=== PATIENT | female | born 1975 | race Caucasian/White ===

== ENCOUNTER 2023-09-18 16:20 | Emergency (ER) | payer BC, SELFPAY ==
[2023-09-18 17:00] VITALS: BP 132/77; PULSE 100; RESP 18; TEMP 37.6; O2SAT 95; BMI 30.9
[2023-09-18 17:15] LABS: UTC Strep Screen (Rapid) Negative (Negative)
--- NOTE | 2023-09-18 17:26 | EXP.UTC ---
Discharge Plan Disposition Patient Disposition: Home, Self-Care Condition: Good Prescriptions Prescriptions: New benzonatate 100 mg capsule 100 mg PO TID PRN (Reason: cough) Qty: 30 0RF methylprednisolone [Medrol (Moi)] 4 mg tablets,dose pack See Rx Instructions .Route .COMPLEX 6 Days Qty: 21 0RF Rx Instructions: taper pack; azithromycin [Zithromax Z-Moi] 250 mg tablet See Rx Instructions .ROUTE .COMPLEX 5 Days Qty: 6 0RF Rx Instructions: For 250 mg dose pack: take 500 mg today (day 1), then 250 mg for 4 days (days 2-5) Referrals Follow up/Referrals: Gonzalo Patterson MD [Primary Care Provider] - See instructions Activity Restrictions/Add. Instructions Additional Instructions/Restrictions: *Monitor Temp, Over the counter Motrin or Tylenol as directed/as needed Tylenol every 4 hours and Motrin every 6 hours (as long as your family doctor has told you that you can take it) for fever or pain. and straight to ER if unable to lower temp less than 101.0 after medication given *Warm salt water gargles may help to soothe the throat *Throat Lozenges? *Warm fluids like tea with honey may help to soothe the throat? *Sleep elevated *Humidifier/Vaporizer Take medication as prescribed Your throat swab was sent for culture. Those results are typically sent to your primary care. Be sure to follow up in 2-3 days with your family doctor/primary care physician if no improvement so they can review those result and treat if necessary. If you don?t have a primary care doctor, I recommend you get one but in the mean time, you will have to return to a walk in clinic Follow up IMMEDIATELY for new or worsening symptoms or no Noticeable improvement over the next 48-72 hours. 911 for difficulty breathing or swallowing Clinical Impressions Clinical Impression: Sinusitis Qualifiers: Sinusitis location: unspecified location Chronicity: unspecified Qualified Code(s): J32.9 - Chronic sinusitis, unspecified Instructions Patient Instructions: DI for Sinusitis, Sinusitis Discharge ED Provider: Sharon Sykes [facility] General Stated complaint: sore throat, cough Mode of Arrival: Ambulatory Source of Information: Patient Limitations: No Limitations Time Seen by Provider: 09/18/23 17:26 Description of Symptoms (Recalled from Triage Doc. by RN): sore throat, cough, left ear pain, and congestion HEENT Symptoms (Recalled from RN notes): Yes Resp Symptoms (Recalled from RN notes): No Skin Symptoms (Recalled from RN notes): No MS Symptoms (Recalled from RN notes): No Functional Status (Recalled from RN notes): n/a History of Present Illness Provider Complaint: Patient states that for over a week she has been having sinus congestion and pressure, sore throat, cough, pain and pressure in her ears and headache States that she has been trying to self medicate but nothing OTC has helped so today she came in to get checked Related Data Previous Rx's Medication Instructions Recorded azithromycin 250 mg tablet See Rx Instructions PO .COMPLEX 5 09/18/23 (Zithromax Z-Moi) days #6 tabs benzonatate 100 mg capsule 100 mg PO TID PRN cough #30 caps 09/18/23 methylprednisolone 4 mg tablets in See Rx Instructions .Route 09/18/23 a dose pack (Medrol (Moi)) .COMPLEX 6 days #21 tabs Allergies Allergy/AdvReac Type Severity Reaction Status Date / Time No Known Allergies Allergy Verified 09/18/23 17:10 Worker's Comp Is this a Worker's Comp case?: No [facility] Disclaimer: The information contained in this section may have been updated after the patient was seen, as this information can be updated by other users. Social History Smoking Status: Unknown if ever smoked alcohol intake: never current occupational status: employed Travel in the last 8 weeks: None ROS Obtained: Yes All systems reviewed & no additional complaints except as documented and Yes Systems reviewed as kassandra
[2023-09-18 17:46] VITALS: BP 132/77; PULSE 100; RESP 18; TEMP 37.6; O2SAT 96
== END 2023-09-18 17:46 | disposition home or self-care (01) ==
PROVIDERS: Emergency Provider Nurse Practitioner; PCP Family Medicine
DX: J01.90 Acute sinusitis, unspecified (principal); R07.0 Pain in throat; R05.9 Cough, unspecified; H92.03 Otalgia, bilateral; R51.9 Headache, unspecified; R09.81 Nasal congestion
CPT/HCPCS: 87880; 99204; 99212; G0463

== ENCOUNTER 2024-01-09 22:05 | Emergency (ER) | payer BC, SELFPAY ==
[2024-01-09 22:05] VITALS: BP 169/87; PULSE 78; RESP 18; TEMP 36.7; O2SAT 94; BMI 28.8
--- NOTE | 2024-01-09 22:09 | PC.NURSE ---
initial glucose 87
--- NOTE | 2024-01-09 22:17 | CT_ITS ---
PROCEDURE INFORMATION: Exam: CT Head Without Contrast Exam date and time: 01/09/2024 10:37 PM Age: 48 years old Clinical indication: Pain; Headache; Additional info: History of increased icp, ADAMS, nausea TECHNIQUE: Imaging protocol: Computed tomography of the head without contrast. Radiation optimization: All CT scans at this facility use at least one of these dose optimization techniques: automated exposure control; mA and/or kV adjustment per patient size (includes targeted exams where dose is matched to clinical indication); or iterative reconstruction. COMPARISON: No relevant prior studies available. FINDINGS: Brain: Normal. No hemorrhage. Unremarkable white matter. No mass effect. Cerebral ventricles: No ventriculomegaly. Pituitary gland and sella: Negative Paranasal sinuses: Visualized sinuses are unremarkable. No fluid levels. Mastoid air cells: Visualized mastoid air cells are well aerated. Orbital cavities: Negative. Parotid and submandibular glands: Negative Bones/joints: Unremarkable. No acute fracture. Soft tissues: Unremarkable. Vasculature: Negative. IMPRESSION: No acute intracranial abnormality.
[2024-01-09 22:24] LABS: Basophils # 0.2 K/mm3 (0-0.2); Basophils % 1.7 % (0.1-2.0); Eosinophils # 0.2 K/mm3 (0.0-0.4); Eosinophils % 1.8 % (0.1-12.0); Lymphocytes # 3.4 K/mm3 (0.7-4.5); Lymphocytes % 30.4 % (10-50); Mean Corpuscular HGB Conc 32.7 g/dL (31.8-35.4); Mean Corpuscular Hemoglobin 33.3 pg (27.0-31.2); Mean Corpuscular Volume 101.9 fl (81-99); Monocytes # 0.4 K/mm3 (0.1-1.0); Monocytes % 3.8 % (1.7-9.3); Neutrophils # 6.9 K/mm3 (1.8-7.8); Neutrophils % 62.4 % (37.0-80.0); Platelet Count 246 K/mm3 (142-424); Red Blood Count 4.81 M/mm3 (4.20-5.40); White Blood Count 11.1 K/mm3 (4.8-10.8)
[2024-01-09] MEDS: 0.9 % SODIUM CHLORIDE 1000ML 1,000 ML 999 ML IV (22:25)
[2024-01-09 22:26] LABS: Chloride 106 mmol/L (98-107); Potassium 3.2 mmoL/L (3.5-5.1); Sodium 139 mmol/L (136-145)
[2024-01-09] MEDS: PROCHLORPERAZINE 10MG/2ML VIAL 10 MG IV (22:26)
[2024-01-09] MEDS: diphenhydrAMINE 50MG/ML VIAL 25 MG IV (22:26)
[2024-01-09] MEDS: KETOROLAC 30MG/ML VIAL 15 MG IV (22:27)
[2024-01-09 22:28] LABS: Alanine Aminotransferase 30 U/L (12-78); Alkaline Phosphatase 104 U/L (38-126); Aspartate Amino Transferase 31 U/L (14-36); Bilirubin,Total 0.5 mg/dl (0.2-1.3); Blood Urea Nitrogen 8 mg/dl (7-17); Creatinine Clearance Estimated 90 mL/min (50-200); Estimated Glomerular Filt Rate 67 ml/min (>60); GFR (African American) 81 ML/MIN (>60)
[2024-01-09] MEDS: DEXAMETHASONE 4MG/ML 1ML VIAL 10 MG IV (22:28)
[2024-01-09 22:29] LABS: Albumin Level 4.6 g/dl (3.5-5.0); Albumin/Globulin Ratio 1.4 (1.1-1.8); Anion Gap 11.2 mEq/L (5-15); Calcium 9.8 mg/dl (8.4-10.2); Carbon Dioxide 25 mmol/L (22.0-30.0); Globulin 3.4 g/dL (1.3-3.2); Glucose 91 mg/dl (74-100)
[2024-01-09 22:30] VITALS: BP 137/88; PULSE 80; O2SAT 99
--- NOTE | 2024-01-09 22:42 | HMH.EDGENADL ---
Discharge Plan Disposition Patient Disposition: Xfer Short-Term Hosp Chief Complaint: Headache Prescriptions Prescriptions: No Action benzonatate 100 mg capsule 100 mg PO TID PRN (Reason: cough) Qty: 30 0RF methylprednisolone [Medrol (Moi)] 4 mg tablets,dose pack See Rx Instructions .Route .COMPLEX 6 Days Qty: 21 0RF Rx Instructions: taper pack; azithromycin [Zithromax Z-Moi] 250 mg tablet See Rx Instructions .ROUTE .COMPLEX 5 Days Qty: 6 0RF Rx Instructions: For 250 mg dose pack: take 500 mg today (day 1), then 250 mg for 4 days (days 2-5) Referrals Follow up/Referrals: Provider,Referral, MD [Primary Care Provider] - See instructions Clinical Impressions Clinical Impression: Intracranial hypertension, Headache, Blurred vision Stand Alone Forms Stand Alone Forms: Transfer Record - ED Discharge ED Provider: Glynn Mccallum General Adult HPI General Chief complaint: Headache Stated complaint: stroke symptoms Time Seen by Provider: 01/09/24 22:10 Mode of Arrival: Ambulatory Source of Information: Patient and [employer] Limitations: No Limitations Description of Symptoms (Recalled from ER Triage Doc. by RN): Patient arrived accompanied by co-workers after having 10/10 headache at work and difficulty with word finding. Patient reports that she's been seen by a neurologist recently for swelling in her optic nerves and that she began having increased generalized headache and nausea tonight. Patient reports that she has not felt right since at least last week. Patient was seen [facility] and diagnosed with a possible viral syndrome. History of Present Illness HPI narrative: 48-year-old female with history of known intracranial hypertension presenting with headaches, vomiting, hallucinations. Started getting worse over the past couple days. Today, patient states that her vision has been blurrier than usual, she is having hallucinations including objects and animals, severe, 10 out of 10 headache. It does not radiate. Bifrontal. No neurologic deficits other than blurry vision. Has not noticed anything that makes the pain better, has not tried any interventions. Was recently seen by neurologist at [facility], lumbar puncture 2 weeks ago with pressure 47 mmHg. Was given neurosurgery for follow-up referral, but has not heard anything back about the appointment. Please note that above description of symptoms, in this electronic medical record under categorization of recalled from ER triage doctor by RN are reflective of an initial nursing assessment, however, is not reflective of my full history and physical exam that was personally taken and clarified. Consequentially, this preceding description of symptoms, which may include the patient's categorized chief complaint in the EMR, do not reflect my personal clinical impression, and the ultimate description of history of present illness and patient stated complaints should be deferred to this section of the note. Unless stated otherwise or congruent with this section of the note, additional signs, symptoms, or incongruence should be interpreted as inaccurate with my clinical impression. Related Data Previous Rx's Medication Instructions Recorded azithromycin 250 mg tablet See Rx Instructions PO .COMPLEX 5 09/18/23 (Zithromax Z-Moi) days #6 tabs benzonatate 100 mg capsule 100 mg PO TID PRN cough #30 caps 09/18/23 methylprednisolone 4 mg tablets in See Rx Instructions .Route 09/18/23 a dose pack (Medrol (Moi)) .COMPLEX 6 days #21 tabs Allergies Allergy/AdvReac Type Severity Reaction Status Date / Time No Known Allergies Allergy Verified 09/18/23 17:10 [facility] Disclaimer: The information contained in this section may have been updated after the patient was seen, as this information can be updated by other users. Social History (Updated 09/18/23 @ 17:32 by Sharon Sykes APRN) Smoking Status: Current every day smoker alcohol intake: never current occupational status: employed Travel in the last 8 weeks: None ROS Obtained: Yes All systems reviewed & no additional complaints except as documented Physical Exam General General appearance: alert and in no apparent distress Head Head exam: atraumatic and normocephalic Eye Eye exam: Present normal appearance, PERRL and EOMI ENT ENT exam: Present mucous membranes moist Neck Neck exam: Present normal inspection, full ROM and trachea midline Respiratory Respiratory exam: Present normal lung sounds bilaterally; Absent respiratory distress, wheezes, stridor, accessory muscle use or prolonged expiratory phase Cardiovascular Cardiovascular exam: Present regular rate and normal rhythm Abdominal Exam Abdominal exam: Present soft; Absent distention, tenderness, guarding, rebound or rigidity Extremities Exam Extremities exam: Absent edema Neurological Exam Neurological exam: Present alert, oriented X3, CN II-XII intact and normal gait; Absent motor sensory deficit Skin Skin exam: Present warm and dry; Absent diaphoresis or erythema Medical Decision Making Medical Records Medical records reviewed: Yes I reviewed the patient's medical records. Sukhwinder Inquiry Pt receiving controlled substance: No Sukhwinder was queried for this patient: No Vital Signs: 01/09/24 22:05 Temperature 98.1 F Temperature Source Oral Pulse Rate [Left Radial] 78 Respiratory Rate 18 Blood Pressure [Right Arm] 169/87 H Blood Pressure Mean [Right Arm] 114 Blood Pressure Source [Right Arm] Automatic Cuff Blood Pressure Position [Right Arm] Sitting 02 Sat by Pulse Oximetry 94 L Oxygen Delivery Method Room Air Lab Data Lab Results 01/09/24 22:07: WBC 11.1 H, RBC 4.81, Hgb 16.0, Hct 49.0 H, MCV 101.9 H, MCH 33.3 H, MCHC 32.7, RDW 13.0, Plt Count 246, MPV 8.0, Neut % (Auto) 62.4, Lymph % (Auto) 30.4, Wilkinson % (Auto) 3.8, Eos % (Auto) 1.8, Baso % (Auto) 1.7, Neut # (Auto) 6.9, Lymph # (Auto) 3.4, Wilkinson # (Auto) 0.4, Eos # (Auto) 0.2, Baso # (Auto) 0.2, Sodium 139, Potassium 3.2 L, Chloride 106, Carbon Dioxide 25, Anion Gap 11.2, BUN 8, Creatinine 0.90, Estimated Creat Clear 90, Estimated GFR 67, Est GFR ( Amer) 81, Glucose 91, Calcium 9.8, Total Bilirubin 0.5, AST 31, ALT 30, Alkaline Phosphatase 104, Total Protein 8.0, Albumin 4.6, Globulin 3.4 H, Albumin/Globulin Ratio 1.4 01/09/24 22:07 01/09/24 22:07 Orders (Tests/Meds): ED MEDICATIONS Discontinued Medications Generic Name Dose Route Start Last Admin Trade Name Freq PRN Reason Stop Dose Admin Dexamethasone Sodium Phosphate 10 mg 01/09/24 22:17 01/09/24 22:28 Dexamethasone 4mg/Ml 1ml Vial IV 01/09/24 22:18 10 mg ONCE ONE Administration Diphenhydramine HCl 25 mg 01/09/24 22:17 01/09/24 22:26 Diphenhydramine 50mg/Ml Vial IV 01/09/24 22:18 25 mg ONCE ONE Administration Sodium Chloride 500 mls @ 999 mls/hr 01/09/24 22:19 01/09/24 22:20 Sod Chlor 0.9% 1000ml Bag IV 01/09/24 22:49 Not Given .Q31M ONE Sodium Chloride 1,000 mls @ 999 mls/hr 01/09/24 22:20 01/09/24 22:25 Sod Chlor 0.9% 1000ml Bag IV 01/09/24 23:20 999 mls/hr .Q1H1M ONE Administration Ketorolac Tromethamine 15 mg 01/09/24 22:17 01/09/24 22:27 Ketorolac 30mg/Ml Vial IV 01/09/24 22:18 15 mg ONCE ONE Administration Prochlorperazine Edisylate 10 mg 01/09/24 22:17 01/09/24 22:26 Prochlorperazine 10mg/2ml Vial IV 01/09/24 22:18 10 mg ONCE ONE Administration ORDERS Category Date Time Status CT head/brain wo con Stat Cat Scan 01/09/24 22:17 Completed CBC w/Auto Diff [Complete Blood Count Auto Diff] Stat Lab 01/09/24 22:07 Completed CMP [Comprehensive Metabolic Panel] Stat Lab 01/09/24 22:07 Completed Medical Decision Narrative: 48-year-old female with history of known intracranial hypertension presenting with headaches, vomiting, hallucinations. Started getting worse over the past couple days. Today, patient states that her vision has been blurrier than usual, she is having hallucinations including objects and animals, severe, 10 out of 10 headache. It does not radiate. Bifrontal. No neurologic deficits other than blurry vision. Has not noticed anything that makes the pain better, has not tried any interventions. Was recently seen by neurologist at [place], lumbar puncture 2 weeks ago with pressure 47 mmHg. Was given neurosurgery for follow-up referral, but has not heard anything back about the appointment.History was obtained via conversation with patient. On arrival, patient hemodynamically stable, alert, oriented x4, appropriate, GCS 15, moving all extremities spontaneously, pupils equal and reactive to light. Full physical exam performed and significant for noting some blurry vision, but neurovascular intact with NIHSS 0. Cardiac exam within normal limits, overall well-appearing, but tearful. Differential includes increased intracranial hypertension, obstructive versus nonobstructive hydrocephalus, IIH, among others. Patient was given headache cocktail with Compazine, Toradol, normal saline, Benadryl, Decadron for symptomatic management and correction of underlying abnormalities. Workup independently interpreted and significant for nonactionable CBC or chemistry. CT head without acute intracranial abnormality. See radiology read for full review of final results. On reevaluation, patient's headache feeling little bit better. Still severe, still having blurry vision. Because patient has history of known intracranial hypertension with elevated pressure, supposed to be following with neurosurgery, has not had the opportunity to do so, [facility] was contacted and case was discussed at length. Ultimately, patient to be t transferred for further evaluation and management. Results were relayed to patient, she is grateful. Because patient high risk for clinical decompensation if discharged, deemed appropriate for transfer and inpatient admission. Results were relayed to patient who voiced understanding and patient was agreeable to transfer, inpatient admission, and management. Patient was graciously accepted and transferred to for further definitive management, under Dr. Lopez. Critical Care Critical Care Time Critical Care Time: No
--- NOTE | 2024-01-09 22:51 | PC.NURSE ---
contacted [facility] for possible transfer
[2024-01-09 23:00] VITALS: BP 153/94; PULSE 73; O2SAT 98
--- NOTE | 2024-01-09 23:16 | PC.NURSE ---
MD Mccallum on phone with at this time
--- NOTE | 2024-01-09 23:23 | PC.NURSE ---
Dr. Lopez accepted, pt going to ED
[2024-01-09 23:38] VITALS: BP 153/94; PULSE 74; RESP 18; TEMP 36.6; O2SAT 96
--- NOTE | 2024-01-09 23:38 | PC.NURSE ---
Nurse to nurse report given to Eliza BERTRAND at ER.
== END 2024-01-09 23:44 | disposition short-term general hospital (02) ==
PROVIDERS: Emergency Provider Emergency Medicine
DX: G44.89 Other headache syndrome (principal); G93.2 Benign intracranial hypertension; H53.8 Other visual disturbances; E87.6 Hypokalemia; R11.2 Nausea with vomiting, unspecified; R44.1 Visual hallucinations; F17.210 Nicotine dependence, cigarettes, uncomplicated
CPT/HCPCS: 70450; 80053; 85025; 96361; 96374; 96375; 99285

== ENCOUNTER 2024-03-26 04:11 | Emergency (ER) | payer BC, SELFPAY ==
[2024-03-26 04:12] VITALS: BP 138/61; PULSE 79; RESP 18; TEMP 36.5; O2SAT 98; BMI 29.0
--- NOTE | 2024-03-26 04:23 | CT_ITS ---
PROCEDURE INFORMATION: Exam: CTA Abdomen and Pelvis With Contrast Exam date and time: 03/26/2024 4:55 AM Age: 48 years old Clinical indication: Other: Delayed pain/bleeding at R fem cath site TECHNIQUE: Imaging protocol: Computed tomographic angiography of the abdomen and pelvis with contrast. Exam focused on the arteries. 3D rendering (Not supervised by radiologist): MIP and/or 3D reconstructed images were created by the technologist. Radiation optimization: All CT scans at this facility use at least one of these dose optimization techniques: automated exposure control; mA and/or kV adjustment per patient size (includes targeted exams where dose is matched to clinical indication); or iterative reconstruction. Contrast material: ISOVUE 370; Contrast volume: 100 ml; Contrast route: INTRAVENOUS (IV); COMPARISON: No relevant prior studies available. FINDINGS: Aorta: No aortic aneurysm. No aortic dissection. Celiac trunk and mesenteric arteries: No occlusion or significant stenosis. Renal arteries: No occlusion or significant stenosis. Right iliac arteries: No occlusion or significant stenosis. Left iliac arteries: No occlusion or significant stenosis. Liver: No mass. Gallbladder and biliary ducts: Cholecystectomy. Pancreas: Unremarkable. No mass. No ductal dilation. Spleen: Unremarkable. No splenomegaly. Adrenal glands: Unremarkable. No mass. Kidneys and ureters: Unremarkable. No solid mass. No hydronephrosis. Stomach and bowel: Unremarkable. No obstruction. No mucosal thickening. Appendix: No evidence of appendicitis. Intraperitoneal space: Unremarkable. No free air. No significant fluid collection. Lymph nodes: Unremarkable. No enlarged lymph nodes. Urinary bladder: Unremarkable. No mass. Reproductive: Unremarkable as visualized. Bones/joints: No acute fracture. Soft tissues: There is subcutaneous hematoma seen in the right inguinal region. No active hemorrhage is identified however. No pseudoaneurysm is identified. IMPRESSION: Small subcutaneous hematoma seen in the right inguinal region. No active hemorrhage is identified however. No pseudoaneurysm is identified.
--- NOTE | 2024-03-26 04:27 | ED_ITS ---
Discharge Plan Disposition Patient Disposition: Home, Self-Care Prescriptions Prescriptions: No Action benzonatate 100 mg capsule 100 mg PO TID PRN (Reason: cough) Qty: 30 0RF methylprednisolone [Medrol (Moi)] 4 mg tablets,dose pack See Rx Instructions .Route .COMPLEX 6 Days Qty: 21 0RF Rx Instructions: taper pack; azithromycin [Zithromax Z-Moi] 250 mg tablet See Rx Instructions .ROUTE .COMPLEX 5 Days Qty: 6 0RF Rx Instructions: For 250 mg dose pack: take 500 mg today (day 1), then 250 mg for 4 days (days 2-5) Referrals Follow up/Referrals: Provider,Referral, MD [Primary Care Provider] - See instructions Activity Restrictions/Add. Instructions Additional Instructions/Restrictions: Please follow-up with your primary care provider. Please return to the emergency department if you develop any new or worsening symptoms or become concerned for your health. Clinical Impressions Clinical Impression: Post-operative pain Discharge ED Provider: Adrian Bonilla Adult HPI General Chief complaint: PAIN Stated complaint: bleeding in right femoral incision site Time Seen by Provider: 03/26/24 04:15 Mode of Arrival: EMS Source of Information: Patient Limitations: No Limitations Description of Symptoms (Recalled from ER Triage Doc. by RN): Pt presented to the ED for right groin pain. Pt had a stent placed for intracranial HTN through the groin on Thursday last week and woke up this morning to severe pain with a clear/bloody discharge from groin site. Pt rates pain 5/10 now and discharge has been intermittent throughout the day. History of Present Illness HPI narrative: 48-year-old female with history of intracranial hypertension presents for pain and bleeding at right femoral catheter insertion site from a cath and intracranial stent placement 1 week ago. She is on antiplatelet therapy. She denies any obvious swelling or signs of infection such as fever chills etc. The pain and bloody discharge are new as of today. Related Data Previous Rx's Medication Instructions Recorded azithromycin 250 mg tablet See Rx Instructions PO .COMPLEX 5 09/18/23 (Zithromax Z-Moi) days #6 tabs benzonatate 100 mg capsule 100 mg PO TID PRN cough #30 caps 09/18/23 methylprednisolone 4 mg tablets in See Rx Instructions .Route 09/18/23 a dose pack (Medrol (Moi)) .COMPLEX 6 days #21 tabs Allergies Allergy/AdvReac Type Severity Reaction Status Date / Time No Known Allergies Allergy Verified 09/18/23 17:10 [facility] Disclaimer: The information contained in this section may have been updated after the patient was seen, as this information can be updated by other users. Social History (Updated 09/18/23 @ 17:32 by Sharon Sykes APRN) Smoking Status: Current every day smoker alcohol intake: never current occupational status: employed Travel in the last 8 weeks: None ROS Obtained: Yes All systems reviewed & no additional complaints except as documented Physical Exam General General appearance: alert and in no apparent distress Head Head exam: atraumatic and normocephalic Eye Eye exam: Present normal appearance, PERRL and EOMI ENT ENT exam: Present normal oropharynx and normal external ear exam Neck Neck exam: Present normal inspection and full ROM Chest Chest inspection: Present normal inspection and symmetric chest wall rise; Absent tenderness Respiratory Respiratory exam: Present normal lung sounds bilaterally; Absent respiratory distress Cardiovascular Cardiovascular exam: Present regular rate and normal rhythm Abdominal Exam Abdominal exam: Present soft; Absent distention, tenderness or guarding Extremities Exam Extremities exam: Present normal inspection and other (Nodular density at the right groin insertion site, does not appear secondarily infected, no active bleeding) Back Exam Back exam: Present normal inspection; Absent tenderness Neurological Exam Neurological exam: Present alert and oriented X3; Absent motor sensory deficit Psychiatric Psychiatric exam: Present normal affect and normal mood Skin Skin exam: Present warm, dry and normal color Lymphatic Lymphatic Findings: no adenopathy Medical Decision Making Medical Records Medical records reviewed: Yes I reviewed the patient's medical records. Sukhwinder Inquiry Pt receiving controlled substance: No Sukhwinder was queried for this patient: No Vital Signs: 03/26/24 04:12 Temperature 97.7 F Temperature Source Oral Pulse Rate [Right Brachial] 79 Respiratory Rate 18 Blood Pressure [Right Arm] 138/61 Blood Pressure Mean [Right Arm] 86 02 Sat by Pulse Oximetry 98 Oxygen Delivery Method Room Air Lab Data Lab results reviewed: Yes I reviewed the patient's lab results. Lab Results 03/26/24 04:28: WBC 7.1, RBC 4.22, Hgb 13.7, Hct 40.9, MCV 96.9, MCH 32.6 H, MCHC 33.6, RDW 13.1, Plt Count 240, MPV 7.8, Neut % (Auto) 55.2, Lymph % (Auto) 34.3, [place] % (Auto) 5.6, Eos % (Auto) 3.4, Baso % (Auto) 1.6, Neut # (Auto) 3.9, Lymph # (Auto) 2.4, [place] # (Auto) 0.4, Eos # (Auto) 0.2, Baso # (Auto) 0.1, Sodium 139, Potassium 3.4 L, Chloride 101, Carbon Dioxide 30, Anion Gap 11.4, BUN 16, Creatinine 0.80, Estimated Creat Clear 102, Estimated GFR 77, Est GFR ( Amer) 93, Glucose 107 H, Calcium 9.4, Total Bilirubin 0.4, AST 30, ALT 29, Alkaline Phosphatase 105, Total Protein 7.7, Albumin 4.3, Globulin 3.4 H, Albumin/Globulin Ratio 1.3, Serum HCG, Qual Negative 03/26/24 04:28 03/26/24 04:28 Orders (Tests/Meds): ED MEDICATIONS Discontinued Medications Generic Name Dose Route Start Last Admin Trade Name Freq PRN Reason Stop Dose Admin Acetaminophen 1,000 mg 03/26/24 04:23 03/26/24 04:31 Acetaminophen 500mg Tab PO 03/26/24 04:24 1,000 mg ONCE ONE Administration Iopamidol 100 ml 03/26/24 05:03 03/26/24 05:05 Iopamidol-370 (76%);100ml Bottle IV 03/26/24 05:04 100 ml ONCE ONE Administration Ketorolac Tromethamine 30 mg 03/26/24 04:23 03/26/24 04:31 Ketorolac 30mg/Ml Vial IV 03/26/24 04:24 30 mg ONCE ONE Administration Sodium Chloride 40 ml 03/26/24 05:03 03/26/24 05:04 0.9 % Sodium Chloride 50 Ml Vial IV 03/26/24 05:04 40 ml ONCE ONE Administration Sodium Chloride 10 ml 03/26/24 05:03 03/26/24 05:04 Sodium Chloride 0.9% 10ml Syr (Rad Only) IV 03/26/24 05:04 10 ml ONCE ONE Administration ORDERS Category Date Time Status CT angio abdomen pelvis Stat Cat Scan 03/26/24 04:23 Completed POCUS Point of Care (ER Only) Stat Exams 03/26/24 04:33 Ordered CBC w/Auto Diff [Complete Blood Count Auto Diff] Stat Lab 03/26/24 04:28 Completed CMP [Comprehensive Metabolic Panel] Stat Lab 03/26/24 04:28 Completed HCG Qualitative, Serum Stat Lab 03/26/24 04:28 Completed Medical Decision Narrative: 48-year-old female 1 week status post right groin catheter insertion presents with new pain and scant bleeding at the site.. History was obtained interactive discussion with patient. On arrival, patient is [afebrile, hemodynamically stable, satting appropriately, alert, oriented x4, GCS 15], moving all extremities spontaneously. Full physical exam performed and significant for nodular density at the insertion site, no active bleeding. Differential includes but is not limited to abscess, cellulitis, pseudoaneurysm, hematoma lymphadenopathy.. Patient was given Tylenol, IV Toradol for symptomatic management and correction of underlying abnormalities. Workup initiated including bedside ultrasound which was performed by me and shows mild lymphadenopathy, no DVT, normal caliber of the femoral arteries, no cellulitis. There is a very small area in the mid subcutaneous tissues that has a fluid density. Does not have the characteristic appearance of an abscess. Workup initiated including CBC CMP, test CT angio abdomen pelvis On re-evaluation, patient [remains afebrile, HD stable.] Laboratory workup independently interpreted by me and significant for no significant leukocytosis, minimal hypokalemia, negative test. Imaging independently interpreted by me and significant for CTA without any evidence of active bleeding, pseudoaneurysm, dissection etc. Does show some stranding at the insertion site and associated lymphadenopathy with a possible small hematoma in the subcutaneous tissues. See radiology read for full review of final results. Given patient history, exam and workup, patient's presentation most likely represents postcatheterization lymphadenopathy and irritation. No evidence of emergent pathology at this time. It is possible that patient could be developing a skin/soft tissue infection, but at this time it does not appear consistent with such. These findings were communicated to patient. She was discharged in stable condition. Return precautions given. Procedures Risk/Benefits of Procedure(s) Were Explained: Yes Critical Care Critical Care Time Critical Care Time: No
[2024-03-26] MEDS: KETOROLAC 30MG/ML VIAL 30 MG IV (04:31)
[2024-03-26] MEDS: ACETAMINOPHEN 500MG TAB 1000 MG PO (04:31)
[2024-03-26 04:36] LABS: Basophils # 0.1 K/mm3 (0-0.2); Basophils % 1.6 % (0.1-2.0); Eosinophils # 0.2 K/mm3 (0.0-0.4); Eosinophils % 3.4 % (0.1-12.0); Hematocrit 40.9 % (37.0-47.0); Hemoglobin 13.7 g/dL (12.2-16.2); Lymphocytes # 2.4 K/mm3 (0.7-4.5); Lymphocytes % 34.3 % (10-50); Mean Corpuscular HGB Conc 33.6 g/dL (31.8-35.4); Mean Corpuscular Hemoglobin 32.6 pg (27.0-31.2); Mean Corpuscular Volume 96.9 fl (81-99); Mean Platelet Volume 7.8 fl (7.4-10.4); Monocytes # 0.4 K/mm3 (0.1-1.0); Monocytes % 5.6 % (1.7-9.3); Neutrophils # 3.9 K/mm3 (1.8-7.8); Neutrophils % 55.2 % (37.0-80.0); Platelet Count 240 K/mm3 (142-424); Red Blood Count 4.22 M/mm3 (4.20-5.40); Red Cell Distribution Width 13.1 % (11.5-17.5); White Blood Count 7.1 K/mm3 (4.8-10.8)
[2024-03-26 04:45] LABS: HCG Qualitative, Serum Negative (Negative)
[2024-03-26 04:46] LABS: Alanine Aminotransferase 29 U/L (12-78); Albumin Level 4.3 g/dl (3.5-5.0); Albumin/Globulin Ratio 1.3 (1.1-1.8); Alkaline Phosphatase 105 U/L (38-126); Anion Gap 11.4 mEq/L (5-15); Aspartate Amino Transferase 30 U/L (14-36); Bilirubin,Total 0.4 mg/dl (0.2-1.3); Blood Urea Nitrogen 16 mg/dl (7-17); Calcium 9.4 mg/dl (8.4-10.2); Carbon Dioxide 30 mmol/L (22.0-30.0); Chloride 101 mmol/L (98-107); Creatinine Clearance Estimated 102 mL/min (50-200); Estimated Glomerular Filt Rate 77 ml/min (>60); GFR (African American) 93 ML/MIN (>60); Globulin 3.4 g/dL (1.3-3.2); Glucose 107 mg/dl (74-100); Potassium 3.4 mmoL/L (3.5-5.1); Sodium 139 mmol/L (136-145); Total Protein,Serum 7.7 g/dl (6.3-8.2)
[2024-03-26] MEDS: 0.9 % SODIUM CHLORIDE 50 ML VIAL 40 ML IV (05:04)
[2024-03-26] MEDS: SODIUM CHLORIDE 0.9% 10ML SYR (RAD ONLY) 10 ML IV (05:04)
[2024-03-26] MEDS: IOPAMIDOL-370 (76%);100ML BOTTLE 100 ML IV (05:05)
[2024-03-26 06:00] VITALS: BP 118/77; PULSE 75; O2SAT 98
--- NOTE | 2024-03-26 06:01 | PC.NURSE ---
patient sleeping at this time
[2024-03-26 06:30] VITALS: BP 115/77; PULSE 74; O2SAT 98
[2024-03-26 06:49] VITALS: BP 115/77; PULSE 74; RESP 16; TEMP 36.5; O2SAT 98
== END 2024-03-26 06:50 | disposition home or self-care (01) ==
PROVIDERS: Emergency Provider Emergency Medicine
DX: T82.848A Pain due to vascular prosthetic devices, implants and grafts, initial encounter (principal); T82.838A Hemorrhage due to vascular prosthetic devices, implants and grafts, initial encounter; G93.2 Benign intracranial hypertension; F17.210 Nicotine dependence, cigarettes, uncomplicated; R59.0 Localized enlarged lymph nodes; Z95.5 Presence of coronary angioplasty implant and graft
CPT/HCPCS: 74174; 80053; 84703; 85025; 96374; 99285; J1885; Q9967

== ENCOUNTER 2024-10-13 18:06 | Emergency (ER) | payer BC, SELFPAY ==
[2024-10-13] VITALS (12 sets, daily range): BP systolic 118–147; BP diastolic 65–93; PULSE 68–92; RESP 14–18; TEMP 37; O2SAT 93–99; BMI 28.3
--- NOTE | 2024-10-13 18:16 | ECG_ITS ---
APPROVED REPORT Exam: Resting ECG HR:92 bpm ECG Measurements Heart Rate 92 AXES KS 131 P 52 QRSd 86 QRS 70 QT 349 T 47 QTc 399 Conclusion SINUS RHYTHM NORMAL ECG UNCONFIRMED REPORT Electronically signed by : Gonzalo Peacock, 10/13/2024 23:16:20
--- NOTE | 2024-10-13 18:47 | ED_ITS ---
<Statement entered by Olimpia Peacock MD - 10/13/24 22:42> I was consulted by the KADEN, and we discussed the complexity of the problems being addressed. I approved the treatment and management plan for this patient's care in the emergency department, thus performing a substantive portion of the medical decision making. Olimpia Peacock MD, FRANK, FACEP Discharge Plan Disposition Patient Disposition: Home, Self-Care Condition: Good Chief Complaint: Headache Prescriptions Prescriptions: No Action benzonatate 100 mg capsule 100 mg PO TID PRN (Reason: cough) Qty: 30 0RF methylprednisolone [Medrol (Moi)] 4 mg tablets,dose pack See Rx Instructions .Route .COMPLEX 6 Days Qty: 21 0RF Rx Instructions: taper pack; azithromycin [Zithromax Z-Moi] 250 mg tablet See Rx Instructions .ROUTE .COMPLEX 5 Days Qty: 6 0RF Rx Instructions: For 250 mg dose pack: take 500 mg today (day 1), then 250 mg for 4 days (days 2-5) Referrals Follow up/Referrals: Junaid Patterson [Primary Care Provider] - See instructions Clinical Impressions Clinical Impression: Hypokalemia Headache Qualifiers: Headache type: unspecified Headache chronicity pattern: acute headache I ntractability: not intractable Qualified Code(s): R51.9 - Headache, unspecified Print Language Print Language: Peruvian Discharge ED Provider: Olimpia Peacock General Adult HPI <DINO Garcia - Last Filed: 10/13/24 20:56> General Chief complaint: Headache Stated complaint: brain fog, headache Time Seen by Provider: 10/13/24 18:47 Mode of Arrival: Ambulatory Source of Information: Patient Limitations: No Limitations Description of Symptoms (Recalled from ER Triage Doc. by RN): pt c/o blurred vision, brain fog, head ache with shooting pain, starting at 2pm today History of Present Illness HPI narrative: Patient presents for evaluation of a headache. Patient reports that she began having a headache all over but primarily on the left side along with brain fog . Patient denies any focal neurologic symptoms including loss of vision or change in vision, change in sense or smell or taste, no ataxia no problems with word finding. Patient reports no recent sick contacts. Patient does have a history of stenting of a vessel in her head and the left posterior area though she is not sure which 1. She does have a card that shows that she got an expandable metal stent. Related Data Previous Rx's ?Medication ?Instructions ?Recorded azithromycin 250 mg tablet See Rx Instructions PO .COMPLEX 5 09/18/23 (Zithromax Z-Moi) days #6 tabs benzonatate 100 mg capsule 100 mg PO TID PRN cough #30 caps 09/18/23 methylprednisolone 4 mg tablets in See Rx Instructions .Route 09/18/23 a dose pack (Medrol (Moi)) .COMPLEX 6 days #21 tabs Allergies Allergy/AdvReac Type Severity Reaction Status Date / Time No Known Allergies Allergy Verified 09/18/23 17:10 [facility] <DINO Garcia - Last Filed: 10/13/24 20:56> [facility] Disclaimer: The information contained in this section may have been updated after the patient was seen, as this information can be updated by other users. Social History (Updated 09/18/23 @ 17:32 by Sharon Sykes APRN) Smoking Status: Current every day smoker alcohol intake: never current occupational status: employed Travel in the last 8 weeks: None Have you lived/traveled outside [place] in past 30 days?: No Contact w/someone who lives/traveled outside US past 30 days?: No Exposure to someone with infectious disease in past 14 days?: No Do you have a fever (greater than 100.4 F or 38 C)?: No Have you tested positive for COVID-19: No Exposed to someone with COVID-19 in past 14 days?: No Do you have a sore throat?: No Do you have a cough?: No Do you have any weakness?: No Do you have any diarrhea?: No Are you experiencing any unusual bleeding?: No Do you have any muscle aches/pain?: No Do you have any abdominal pain?: No Are you experiencing loss of taste or smell?: No Other Medical History Have you received the Flu Vaccine for this season: No Have you received the Pneumonia Vaccine: No <DINO Garcia - Last Filed: 10/13/24 20:56> ROS Obtained: Yes Systems reviewed as appropriate & no additional complaints except as documented Physical Exam <DINO Garcia - Last Filed: 10/13/24 20:56> General General appearance: alert and in no apparent distress Eye Eye exam: Present normal appearance, PERRL and EOMI Neck Neck exam: Present normal inspection, full ROM and trachea midline; Absent tenderness or lymphadenopathy Respiratory Respiratory exam: Present normal lung sounds bilaterally Cardiovascular Cardiovascular exam: Present regular rate Neurological Exam Neurological exam: Present alert, oriented X3, CN II-XII intact, normal gait and reflexes normal; Absent motor sensory deficit Medical Decision Making <DINO Garcia - Last Filed: 10/13/24 20:56> Medical Records Medical records reviewed: Yes I reviewed the patient's medical records. Screening: Per USPSTF and CDC recommendations, given the prevalence of disease in our region, it is our hospital?s policy to screen for HIV and viral Hepatitis for all patients aged 18 and over and those with ongoing risk factors. Sukhwinder Inquiry Pt receiving controlled substance: No Vital Signs: 10/13/24 18:19 10/13/24 18:45 Temperature 98.6 F Temperature Source Oral Pulse Rate 83 Pulse Rate [Right Radial] 92 H Respiratory Rate 18 Blood Pressure [Right Arm] 147/93 H Blood Pressure Mean [Right Arm] 111 02 Sat by Pulse Oximetry 97 97 Oxygen Delivery Method Nasal Cannula Lab Data Lab results reviewed: Yes I reviewed the patient's lab results. Lab Results 10/13/24 18:30: WBC 12.9 H, RBC 4.48, Hgb 14.5, Hct 40.4, MCV 90.2, MCH 32.4 H, MCHC 35.9 H, RDW 12.1, Plt Count 237, MPV 9.9, Neut % (Auto) 76.2, Lymph % (Auto) 17.6, [place] % (Auto) 4.8, Eos % (Auto) 0.5, Baso % (Auto) 0.5, Neut # (Auto) 9.9 H, Lymph # (Auto) 2.3, [place] # (Auto) 0.6, Eos # (Auto) 0.1, Baso # (Auto) 0.1, Sodium 136, Potassium 2.8 L*, Chloride 96 L, Carbon Dioxide 32 H, Anion Gap 10.8, BUN 11, Creatinine 0.70, Estimated Creat Clear 116, Estimated GFR 89, Est GFR ( Amer) 108, Glucose 105 H, Calcium 9.8, Magnesium 1.9, Total Bilirubin 0.4, AST 37 H, ALT 29, Alkaline Phosphatase 97, Total Protein 7.8, Albumin 4.7, Globulin 3.1, Albumin/Globulin Ratio 1.5, Serum HCG, Qual Negative 10/13/24 18:30 10/13/24 18:30 Orders (Tests/Meds): ED MEDICATIONS Generic Name Dose Route Start Last Admin Trade Name Freq PRN Reason Stop Dose Admin Potassium Chloride/Water 100 mls @ 50 mls/hr 10/13/24 19:17 10/13/24 20:03 Potassium Chloride 20meq/100ml Ivpb IV 10/14/24 01:16 50 mls/hr Q2H GUILHERME Administration Discontinued Medications Generic Name Dose Route Start Last Admin Trade Name Freq PRN Reason Stop Dose Admin Acetaminophen 1,000 mg 10/13/24 18:48 10/13/24 18:55 Acetaminophen 1,000mg/100ml Vial IV 10/13/24 18:49 1,000 mg ONCE ONE Administration Dexamethasone Sodium Phosphate 10 mg 10/13/24 18:48 10/13/24 18:55 Dexamethasone 4mg/Ml 5ml Mdv IV 10/13/24 18:49 10 mg ONCE ONE Administration Diphenhydramine HCl 50 mg 10/13/24 18:48 10/13/24 18:56 Diphenhydramine 50mg/Ml Vial IV 10/13/24 18:49 50 mg ONCE ONE Administration Sodium Chloride 1,000 mls @ 999 mls/hr 10/13/24 18:48 10/13/24 18:55 Sod Chlor 0.9% 1000ml Bag IV 10/13/24 19:48 999 mls/hr .Q1H1M ONE Administration Iopamidol 80 ml 10/13/24 19:45 10/13/24 19:49 Iopamidol-370 (76%);100ml Bottle IV 10/13/24 19:46 80 ml ONCE ONE Administration Methocarbamol 500 mg 10/13/24 18:48 10/13/24 18:56 Methocarbamol 500mg Tablet PO 10/13/24 18:49 500 mg ONCE ONE Administration Potassium Chloride 60 meq 10/13/24 19:17 10/13/24 20:03 Potassium Chloride 20meq Tab PO 10/13/24 19:18 60 meq ONCE ONE Administration Sodium Chloride 50 ml 10/13/24 19:45 10/13/24 19:49 0.9 % Sodium Chloride 50 Ml Vial IV 10/13/24 19:46 50 ml ONCE ONE Administration Sodium Chloride 10 ml 10/13/24 19:45 10/13/24 19:49 Sodium Chloride 0.9% 10ml Syr (Rad Only) IV 10/13/24 19:46 10 ml ONCE ONE Administration ORDERS Category Date Time Status CT angio head Stat Cat Scan 10/13/24 18:[address] angio neck Stat Cat Scan 10/13/24 18:[address] head/brain wo con Stat Cat Scan 10/13/24 18:51 Completed POCUS Point of Care (ER Only) Stat Exams 10/13/24 20:36 Ordered CBC w/Auto Diff [Complete Blood Count Auto Diff] Stat Lab 10/13/24 18:30 Completed CMP [Comprehensive Metabolic Panel] Stat Lab 10/13/24 18:30 Completed HCG Qualitative, Serum Stat Lab 10/13/24 18:30 Completed Magnesium Stat Lab 10/13/24 18:30 Completed UA [Urinalysis and Microscopic] Stat Lab 10/13/24 18:49 Ordered UDS [Drug Screen,Urine] Stat Lab 10/13/24 18:49 Ordered Medical Decision Narrative: In summary patient is a D9-year-old female who presents to the emergency department for evaluation of headache and brain fog . Patient is hemodynamically stable upon arrival, afebrile. Physical exam is remarkable for a Dionicio Coma Score 15, cranial nerves II through XII intact grossly to exam, patient is awake alert and oriented person place and circumstance, patient's NIH stroke score is 0, patient has full range of motion of her C-spine without tenderness or worsening symptoms, patient has no focal neurologic deficits. Differential diagnosis includes simple headache versus occluded stent versus vascular abnormality versus intracranial hemorrhage etc. Initial workup will be conducted with hematologic labs CT scan of the head without contrast CTA of the head neck. Initial interventions include crystalloid bolus headache cocktail with the exception of Toradol. Initial workup reviewed by me shows a significant hypokalemia of 2.8, white count of 12.9 with absolute neutrophil count of 9.9 and the remainder of her hematologic labs are nonactionable. My informal trepidation of CT scan of the head without contrast shows no acute abnormalities prior to radiology read.. Upon repeat evaluation I requestion the patient about her medication history and patient actually is on Lasix along with potassium she states to keep the pressure down in her head. Patient reports that her symptoms are very similar to when she got her stent last summer.. Given this I have ordered a POCUS of her eyes to evaluate her optic nerves. Please note Dr. Peacock's note regarding the POCUS but it did show slight enlargement of the left optic nerve sheath but not correlated on CT scanning and patient's visual acuity was normal 20/20 in both eyes 2013 and binocular vision. The angiogram of the head and neck does not reveal any acute intracranial abnormality via my informal interpretation and confirmed by radiology. Given this we have essentially ruled out any acute life-threatening or serious injury. Thus patient is appropriate for discharge with close follow-up with her neurosurgeon for reevaluation, close follow-up with her PCP for no improvement or worsening signs or symptoms especially for recheck of her hypokalemia within 48 hours. Patient given strict return precautions <Olimpia Peacock MD - Last Filed: 10/13/24 20:52> Vital Signs: 10/13/24 18:19 10/13/24 18:45 Temperature 98.6 F Temperature Source Oral Pulse Rate 83 Pulse Rate [Right Radial] 92 H Respiratory Rate 18 Blood Pressure [Right Arm] 147/93 H Blood Pressure Mean [Right Arm] 111 02 Sat by Pulse Oximetry 97 97 Oxygen Delivery Method Nasal Cannula Lab Data Lab Results 10/13/24 18:30: WBC 12.9 H, RBC 4.48, Hgb 14.5, Hct 40.4, MCV 90.2, MCH 32.4 H, MCHC 35.9 H, RDW 12.1, Plt Count 237, MPV 9.9, Neut % (Auto) 76.2, Lymph % (Auto) 17.6, [place] % (Auto) 4.8, Eos % (Auto) 0.5, Baso % (Auto) 0.5, Neut # (Auto) 9.9 H, Lymph # (Auto) 2.3, [place] # (Auto) 0.6, Eos # (Auto) 0.1, Baso # (Auto) 0.1, Sodium 136, Potassium 2.8 L*, Chloride 96 L, Carbon Dioxide 32 H, Anion Gap 10.8, BUN 11, Creatinine 0.70, Estimated Creat Clear 116, Estimated GFR 89, Est GFR ( Amer) 108, Glucose 105 H, Calcium 9.8, Magnesium 1.9, Total Bilirubin 0.4, AST 37 H, ALT 29, Alkaline Phosphatase 97, Total Protein 7.8, Albumin 4.7, Globulin 3.1, Albumin/Globulin Ratio 1.5, Serum HCG, Qual Negative Orders (Tests/Meds): ED MEDICATIONS Generic Name Dose Route Start Last Admin Trade Name Freq PRN Reason Stop Dose Admin Potassium Chloride/Water 100 mls @ 50 mls/hr 10/13/24 19:17 10/13/24 20:03 Potassium Chloride 20meq/100ml Ivpb IV 10/14/24 01:16 50 mls/hr Q2H GUILHERME Administration Discontinued Medications Generic Name Dose Route Start Last Admin Trade Name Freq PRN Reason Stop Dose Admin Acetaminophen 1,000 mg 10/13/24 18:48 10/13/24 18:55 Acetaminophen 1,000mg/100ml Vial IV 10/13/24 18:49 1,000 mg ONCE ONE Administration Dexamethasone Sodium Phosphate 10 mg 10/13/24 18:48 10/13/24 18:55 Dexamethasone 4mg/Ml 5ml Mdv IV 10/13/24 18:49 10 mg ONCE ONE Administration Diphenhydramine HCl 50 mg 10/13/24 18:48 10/13/24 18:56 Diphenhydramine 50mg/Ml Vial IV 10/13/24 18:49 50 mg ONCE ONE Administration Sodium Chloride 1,000 mls @ 999 mls/hr 10/13/24 18:48 10/13/24 18:55 Sod Chlor 0.9% 1000ml Bag IV 10/13/24 19:48 999 mls/hr .Q1H1M ONE Administration Iopamidol 80 ml 10/13/24 19:45 10/13/24 19:49 Iopamidol-370 (76%);100ml Bottle IV 10/13/24 19:46 80 ml ONCE ONE Administration Methocarbamol 500 mg 10/13/24 18:48 10/13/24 18:56 Methocarbamol 500mg Tablet PO 10/13/24 18:49 500 mg ONCE ONE Administration Potassium Chloride 60 meq 10/13/24 19:17 10/13/24 20:03 Potassium Chloride 20meq Tab PO 10/13/24 19:18 60 meq ONCE ONE Administration Sodium Chloride 50 ml 10/13/24 19:45 10/13/24 19:49 0.9 % Sodium Chloride 50 Ml Vial IV 10/13/24 19:46 50 ml ONCE ONE Administration Sodium Chloride 10 ml 10/13/24 19:45 10/13/24 19:49 Sodium Chloride 0.9% 10ml Syr (Rad Only) IV 10/13/24 19:46 10 ml ONCE ONE Administration ORDERS Category Date Time Status CT angio head Stat Cat Scan 10/13/24 18:[address] angio neck Stat Cat Scan 10/13/24 18:[address] head/brain wo con Stat Cat Scan 10/13/24 18:51 Completed POCUS Point of Care (ER Only) Stat Exams 10/13/24 20:36 Ordered CBC w/Auto Diff [Complete Blood Count Auto Diff] Stat Lab 10/13/24 18:30 Completed CMP [Comprehensive Metabolic Panel] Stat Lab 10/13/24 18:30 Completed HCG Qualitative, Serum Stat Lab 10/13/24 18:30 Completed Magnesium Stat Lab 10/13/24 18:30 Completed UA [Urinalysis and Microscopic] Stat Lab 10/13/24 18:49 Ordered UDS [Drug Screen,Urine] Stat Lab 10/13/24 18:49 Ordered Procedures <Olimpia Peacock MD - Last Filed: 10/13/24 20:52> Miscellaneous Procedure Procedure Performed: Limited ocular ultrasound Indication: Eye pain and visual loss Identified structures: -[R eye/L eye/Both eyes] Findings: Retinal lens vitreous body were all normal no foreign body present on the left optic nerve sheath diameter at a distance of 0.3 cm to the optic nerve sheath on serial assessments were 0.6 cm and on the right 0.5 cm Impression: Normal right eye ultrasound left eye increased optic nerve sheath diameter concerning for papilledema Images were saved to permanent archive The study was technically adequate CPT 92574-76 This study was performed by me, and I personally interpreted all images/videos. Based on my clinical judgement, these images were adequate and did not necessitate further imaging. Critical Care <DINO Garcia - Last Filed: 10/13/24 20:56> Critical Care Time Critical Care Time: No
--- NOTE | 2024-10-13 18:50 | CT_ITS ---
PROCEDURE INFORMATION: Exam: CTA Head With Contrast, Arteriography Exam date and time: 10/13/2024 7:49 PM Age: 49 years old Clinical indication: Pain; Headache; Additional info: Headache, history of vascular stent TECHNIQUE: Imaging protocol: Computed tomographic angiography of the head with contrast. Exam focused on the arteries. 3D rendering (Not supervised by radiologist): MIP and/or 3D reconstructed images were created by the technologist. Radiation optimization: All CT scans at this facility use at least one of these dose optimization techniques: automated exposure control; mA and/or kV adjustment per patient size (includes targeted exams where dose is matched to clinical indication); or iterative reconstruction. Contrast material: ISO 370; Contrast volume: 80 ml; Contrast route: INTRAVENOUS (IV); COMPARISON: CT ANGIO HEAD 10/13/2024 7:49 PM FINDINGS: ANTERIOR CIRCULATION: Right internal carotid artery: Intracranial segment is patent with no significant stenosis. No aneurysm. Right middle cerebral artery: No occlusion or significant stenosis. No aneurysm. Right anterior cerebral artery: No occlusion or significant stenosis. No aneurysm. Left internal carotid artery: Intracranial segment is patent with no significant stenosis. No aneurysm. Left middle cerebral artery: No occlusion or significant stenosis. No aneurysm. Left anterior cerebral artery: No occlusion or significant stenosis. No aneurysm. POSTERIOR CIRCULATION: Right vertebral artery: No occlusion or significant stenosis. No aneurysm. Left vertebral artery: No occlusion or significant stenosis. No aneurysm. Basilar artery: No occlusion or significant stenosis. No aneurysm. Right posterior cerebral artery: No occlusion or significant stenosis. No aneurysm. Left posterior cerebral artery: origin. No occlusion or significant stenosis. No aneurysm. Brain: No definite mass, mass effect, or midline shift. Cerebral ventricles: No ventriculomegaly. Bones/joints: Unremarkable. No acute fracture. Soft tissues: Unremarkable. IMPRESSION: No large vessel stenosis or occlusion.
--- NOTE | 2024-10-13 18:50 | CT_ITS ---
PROCEDURE INFORMATION: Exam: CTA Neck With Contrast Exam date and time: 10/13/2024 7:49 PM Age: 49 years old Clinical indication: Pain; Headache; Additional info: Headache, history of vascular stent TECHNIQUE: Imaging protocol: Computed tomographic angiography of the neck with contrast. Exam focused on the cervical segments of the vasculature. 3D rendering (Not supervised by radiologist): MIP and/or 3D reconstructed images were created by the technologist. Radiation optimization: All CT scans at this facility use at least one of these dose optimization techniques: automated exposure control; mA and/or kV adjustment per patient size (includes targeted exams where dose is matched to clinical indication); or iterative reconstruction. Contrast material: ISOVUE; Contrast volume: 80 ml; Contrast route: INTRAVENOUS (IV); COMPARISON: CT ANGIO HEAD 10/13/2024 7:49 PM FINDINGS: Limitations: Motion artifact degrades image quality and limits the sensitivity of this examination. Right common carotid artery: No stenosis. No dissection or occlusion. Right internal carotid artery: No stenosis of the extracranial segment. No dissection or occlusion. Right external carotid artery: No occlusion or stenosis of the origin. Left common carotid artery: No stenosis. No dissection or occlusion. Left internal carotid artery: No stenosis of the extracranial segment. No dissection or occlusion. Left external carotid artery: No occlusion or stenosis of the origin. Right vertebral artery: No stenosis. No dissection or occlusion. Left vertebral artery: No stenosis. No dissection or occlusion. Thyroid: 1.6 x 1.2 x 2.2 cm partially calcified nodule in the right thyroid lobe. Soft tissues: Normal. No significant soft tissue swelling. Bones/joints: No acute fracture. IMPRESSION: 1. No hemodynamically significant stenosis. 2. Motion artifact limits evaluation of the ICA between the carotid bifurcation and skull base. A subtle dissection at this level cannot be excluded on the basis of this examination. COMMENTS: Consistent with the [employer]'s Incidental Findings Committee white paper (J Am Mina Radiol 2015): In patients aged 35 years and older with an incidental thyroid nodule equal to or greater than 1.[address], MRI or extrathyroidal US, further evaluation with dedicated thyroid US is recommended for patients with normal life expectancy and without comorbidities. For smaller nodules without suspicious features, no further evaluation or follow up is recommended. REFERENCES: NASCET CRITERIA. The degree of stenosis in the cervical segment of the internal carotid artery is based on NASCET criteria. Normal is no stenosis. Mild is less than 50% stenosis. Moderate is 50-69% stenosis. Severe is 70% to 99% stenosis. Total occlusion is no detectable patent lumen.
--- NOTE | 2024-10-13 18:51 | CT_ITS ---
PROCEDURE INFORMATION: Exam: CT Head Without Contrast Exam date and time: 10/13/2024 7:47 PM Age: 49 years old Clinical indication: Pain; Headache; Additional info: Headache, history of vascular stent TECHNIQUE: Imaging protocol: Computed tomography of the head without contrast. Radiation optimization: All CT scans at this facility use at least one of these dose optimization techniques: automated exposure control; mA and/or kV adjustment per patient size (includes targeted exams where dose is matched to clinical indication); or iterative reconstruction. COMPARISON: CT HEAD/BRAIN WO CON 01/09/2024 10:37 PM FINDINGS: Brain: Patient's known vascular stent partially visualized in the left posterior fossa. Cerebral ventricles: No ventriculomegaly. The appearance of the ventricles is unchanged compared with the previous study. Paranasal sinuses: Visualized sinuses are unremarkable. No fluid levels. Mastoid air cells: Visualized mastoid air cells are well aerated. Bones: Unremarkable. No acute fracture. Soft tissues: Unremarkable. IMPRESSION: No evidence of acute intracranial abnormality.
[2024-10-13 18:55] LABS: Basophils # 0.1 K/mm3 (0-0.2); Basophils % 0.5 % (0.1-2.0); Eosinophils # 0.1 K/mm3 (0.0-0.4); Eosinophils % 0.5 % (0.1-12.0); Hematocrit 40.4 % (37.0-47.0); Hemoglobin 14.5 g/dL (12.2-16.2); Lymphocytes # 2.3 K/mm3 (0.7-4.5); Lymphocytes % 17.6 % (10-50); Mean Corpuscular HGB Conc 35.9 g/dL (31.8-35.4); Mean Corpuscular Hemoglobin 32.4 pg (27.0-31.2); Mean Corpuscular Volume 90.2 fl (81-99); Mean Platelet Volume 9.9 fl (7.4-10.4); Monocytes # 0.6 K/mm3 (0.1-1.0); Monocytes % 4.8 % (1.7-9.3); Neutrophils # 9.9 K/mm3 (1.8-7.8); Neutrophils % 76.2 % (37.0-80.0); Platelet Count 237 K/mm3 (142-424); Red Blood Count 4.48 M/mm3 (4.20-5.40); Red Cell Distribution Width 12.1 % (11.5-17.5); White Blood Count 12.9 K/mm3 (4.8-10.8)
[2024-10-13] MEDS: ACETAMINOPHEN 1,000MG/100ML VIAL 1000 MG IV (18:55)
[2024-10-13] MEDS: DEXAMETHASONE 4MG/ML 5ML MDV 10 MG IV (18:55)
[2024-10-13] MEDS: 0.9 % SODIUM CHLORIDE 1000ML 1,000 ML 999 ML IV (18:55)
[2024-10-13] MEDS: METHOCARBAMOL 500MG TABLET 500 MG PO (18:56)
[2024-10-13] MEDS: diphenhydrAMINE 50MG/ML VIAL 50 MG IV (18:56)
[2024-10-13 19:06] LABS: Alanine Aminotransferase 29 U/L (12-78); Albumin Level 4.7 g/dl (3.5-5.0); Albumin/Globulin Ratio 1.5 (1.1-1.8); Alkaline Phosphatase 97 U/L (38-126); Aspartate Amino Transferase 37 U/L (14-36); Bilirubin,Total 0.4 mg/dl (0.2-1.3); Blood Urea Nitrogen 11 mg/dl (7-17); Calcium 9.8 mg/dl (8.4-10.2); Carbon Dioxide 32 mmol/L (22.0-30.0); Chloride 96 mmol/L (98-107); Creatinine Clearance Estimated 116 mL/min (50-200); Estimated Glomerular Filt Rate 89 ml/min (>60); GFR (African American) 108 ML/MIN (>60); Globulin 3.1 g/dL (1.3-3.2); Glucose 105 mg/dl (74-100); Magnesium 1.9 mg/dl (1.6-2.3); Total Protein,Serum 7.8 g/dl (6.3-8.2)
[2024-10-13 19:12] LABS: Sodium 136 mmol/L (136-145)
[2024-10-13 19:13] LABS: Anion Gap 10.8 mEq/L (5-15)
[2024-10-13 19:14] LABS: Potassium 2.8 mmoL/L (3.5-5.1)
--- NOTE | 2024-10-13 19:15 | PC.NURSE ---
lab called with critical potassium 2.8
[2024-10-13 19:32] LABS: HCG Qualitative, Serum Negative (Negative)
[2024-10-13] MEDS: IOPAMIDOL-370 (76%);100ML BOTTLE 80 ML IV (19:49)
[2024-10-13] MEDS: SODIUM CHLORIDE 0.9% 10ML SYR (RAD ONLY) 10 ML IV (19:49)
[2024-10-13] MEDS: 0.9 % SODIUM CHLORIDE 50 ML VIAL IV (19:49)
[2024-10-13] MEDS: POTASSIUM CHLORIDE 20MEQ TAB 60 MEQ PO (20:03)
[2024-10-13] MEDS: KCl 20mEq/100ml 100 ML 50 MEQ IV ×3 (20:03→23:34)
[2024-10-14 01:52] VITALS: BP 135/75; PULSE 77; RESP 18; TEMP 36.8; O2SAT 94
== END 2024-10-14 01:52 | disposition home or self-care (01) ==
PROVIDERS: Physician Assistant; Emergency Provider Student in an Organized Health Care Education/Training Program; PCP Pediatrics
DX: E87.6 Hypokalemia (principal); R51.9 Headache, unspecified; H53.8 Other visual disturbances; R41.9 Unspecified symptoms and signs involving cognitive functions and awareness; H57.13 Ocular pain, bilateral
CPT/HCPCS: 70450; 70496; 70498; 80053; 83735; 84703; 85025; 93005; 96361; 96374; 96375; 99285; J0131; J1100; J1200; J7030; Q9967